=== PATIENT | male | born 1945 | race Caucasian/White ===

== ENCOUNTER 2019-05-27 16:22 | Inpatient (IN) | payer OTHER ==
[~2019-05-27] VITALS: Ht 162.6 cm; Wt 60.1 kg
[2019-05-27] MEDS ORDERED: LIPITOR80 MG PO (20:04)
[2019-05-27] MEDS ORDERED: CARVEDILOL12.5 MG PO (20:16)
[2019-05-27] MEDS ORDERED: DOCUSATE SODIU100 MG PO (20:18)
[2019-05-27] MEDS ORDERED: FLONASE 0.05%50 MCG (20:19)
[2019-05-27] MEDS ORDERED: HALDOL 0.5 MG0.5 MG PO (20:21)
[2019-05-27] MEDS ORDERED: VIMPAT200 MG PO (20:27)
[2019-05-27] MEDS ORDERED: LEVOTHYROXINE75 MCG PO (20:30)
[2019-05-27] MEDS ORDERED: LORAZEPAM 1 MG T1 MG PO (20:32)
[2019-05-27] MEDS ORDERED: MELATIN3 MG PO (20:33)
[2019-05-27] MEDS ORDERED: OLANZAPINE10 M1 PO (20:35)
[2019-05-27] MEDS ORDERED: OLANZAPINE5 M1 PO ×2 (20:38→20:39)
[2019-05-27] MEDS ORDERED: ZANTAC 150MG T150 M1 (20:41)
[2019-05-27] MEDS ORDERED: MIRALAX17 GM (20:41)
[2019-05-27] MEDS ORDERED: FLOMAX0.4 MG PO (20:43)
[2019-05-27] MEDS ORDERED: SUPER THERAVIT1 EACH PO (20:43)
[2019-05-27] MEDS ORDERED: ACETAMINOPHEN325 M1 (20:45)
[2019-05-27] MEDS ORDERED: VITAMIN E1000 UNIT PO (20:46)
[2019-05-27] MEDS ORDERED: ZONEGRAN100 MG PO (20:48)
[2019-05-27 21:05] VITALS: BP 145/59
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
[2019-05-28 05:42] LABS: ABSOLUTE NEUTROPHILS 4.2 thou/uL (1.4-8.2); BASOPHILS 0.4 % (0.0-2.0); HEMATOCRIT 35.7 % (42.0-52.0); HEMOGLOBIN 11.8 gm/dL (14.0-18.0); LYMPHOCYTES 31.9 % (24.0-44.0); MCH 29.1 pg (26.0-34.0); MCHC 33.2 g/dL (28.0-37.0); MCV 87.7 fL (80.0-100.0); MONOCYTES 8.4 % (1.0-8.0); PLATELET COUNT 243 thou/uL (150-400); POLYS 57.3 % (36.0-66.0); RBC 4.07 mil/uL (4.50-6.00); RDW 15.2 % (10.5-14.5); WBC 7.3 thou/uL (4.0-11.0)
[2019-05-28 06:05] LABS: CALCIUM 8.8 mg/dL (8.5-10.1); CREATININE 0.9 mg/dL (0.7-1.3); POTASSIUM 3.6 mmol/L (3.5-5.1); TOTAL BILIRUBIN 0.3 mg/dL (<0.1-1.0); TOTAL PROTEIN 6.9 g/dL (6.4-8.2)
[2019-05-28] MEDS ORDERED: PROSCAR 5MG TABL5 M1 PO (06:48)
[2019-05-28] MEDS ORDERED: HALDOL 0.5 MG0.5 MG PO (06:51)
[2019-05-28] MEDS ORDERED: DELTA D3400 UNIT PO (06:55)
[2019-05-28 07:52] LABS: URINE BILIRUBIN NEGATIVE (Negative); URINE BLOOD NEGATIVE (Negative); URINE CLARITY CLEAR; URINE COLOR YELLOW; URINE GLUCOSE-RANDOM* NEGATIVE (Negative); URINE KETONES NEGATIVE (Negative); URINE LEUKOCYTES NEGATIVE (Negative); URINE NITRITE NEGATIVE (Negative); URINE PROTEIN (DIPSTICK) NEGATIVE (Negative); URINE SPECIFIC GRAVITY <= 1.005 (1.005-1.035); URINE UROBILINOGEN 0.2 E.U./dl (0.2-1.0)
--- NOTE | 2019-05-28 08:00 | NUR ---
ASSUMED CARE OF PATIENT FROM VOLTAGE INSPECTOR. PATIENT IN HALLWAY AMBULATING WITH WALKER. BREATH SOUNDS CLEAR, HYPO BOWEL SOUNDS, HEART TONES S1 S2 CLEAR. PATIENT WAS HESITANT TO TAKE MORNING MEDICATIONS. PATIENT TAKES MEDICATIONS WHOLE. PATIENT CALM, PLEASANT, AND CONFUSED IN SPEECH. DIFFICULT TO REDIRECT PATIENT.
[2019-05-28 09:30] VITALS: BP 145/59
--- NOTE | 2019-05-28 16:06 | NUR ---
SW called and spoke with pt's dght to complete the intake assessment and TX plan. Set up a family meeting for Friday 06/01 at 11am.
[2019-05-28 23:50] VITALS: BP 145/59
--- NOTE | 2019-05-29 03:47 | NUR ---
PT RESTLESS AND CONFUSED EARLY IN SHIFT. WANDERING INTO OTHER PTS ROOMS. SOME RESISTANCE TO REDIRECTION. TOOK HS MEDS AFTER SNACKS W/O PROBLEM. CONTINUED TO BE RESTLESS, AND FINALLY UP IN CHAIR IN DAYROOM WHERE HE DOZED OFF AND ON THE REMAINDER OF THE NIGHT.
[2019-05-29 07:45] VITALS: BP 122/63
[2019-05-29 16:52] VITALS: BP 131/60
--- NOTE | 2019-05-29 18:30 | NUR ---
PATIENT ALERT AND COOPERATIVE WITH POC. PATIENT VENEZUELAN PRIMARY LANGUAGE WITH VERY LITTLE UNDERSTANDING OF KINYARWANDA. FAMILY TO VISIT THIS AFTERNOON. PATIENT ABLE TO WALK WITH WALKER.
[2019-05-29 19:57] VITALS: BP 127/66
--- NOTE | 2019-05-30 01:39 | NUR ---
1909-Report received from day shift nurse and care assumed. Koko was pacing and also sat in the day area for HS snack. He was anxious then also finding kleenex and wiping the table top which as clean already. He had no c.o. pain, given his HS meds. which he took whole with water at HS med. time. He was given Melotonin 6 mg. po for insomnia, and went to his bed. He tossed and turned talking to unseen others with his eyes closed, very restless with his eyes closed and tried getting out of bed with eyes closed a few times noted. Melatonin was not effective for a sleep aid. The Dr. was called and the pt. was given Ativan 1 mg. po at [address] said to call him back with the result in one hour. He was tossing and turning with eyes closed mumbling to him self and placed legs to the side over the rail a few times with eyes closed with mumbling. The DrMelquiades called and at 0030 he was given Geodon 10 mg. IM x 1 now. It was effective as the pt. was not restless and snoring with sleep at 0145.
[2019-05-30 07:51] VITALS: BP 120/78
--- NOTE | 2019-05-30 11:36 | NUR ---
Has been up walkeing with walker, noted a limp where he is favoring the right leg, upon exam found tight and discolored calf with some pitting noted, he stated it was painful, he does not present other symptoms of discomfort, agitation or AVH. Dr. Weston is aware and is to order an ultrasound of his LE's. Continue to monitor for behaviors and safety issues.
[2019-05-30 19:52] VITALS: BP 172/92
--- NOTE | 2019-05-31 01:33 | NUR ---
PATIENT ASSESSED AND IS CONFUSED, AND ALERT X 1. SITTING IN W/C ROLLING HIMSELF IN HALLWAY. GETS UP OUT OF CHAIR OFTEN, HAS CHAIR ALARM ON. REDIRECTED TO SIT DOWN. REMAINS VERY IMPULSIVE AT TIMES. MEDS GIVEN WITHOUT PROBLEMS.NO SEIZURES NOTED THIS SHIFT. NO S/S OF AH/VH OBSERVED. TAKES MED WELL AND EATING WELL TODAY. PLKACED TO BED AND JHAS BEEN SLEEPING EVER SINCE. INCONT OF BOWEL AND BLADDER THIS SHIFT. HR IRREGULAR. EDEMA NOTED TO LEFT LEG ABOUT 1+ AND RIGHT LEG 2+. DOES UNDERSTAND SOME CHILEAN. CONT PLAN OF CARE. BED ALARM ON ALSO. IS STUBBORN AT TIMES .
[2019-05-31 09:28] VITALS: BP 143/77
[2019-05-31 13:08] VITALS: BP 143/77
[2019-05-31 19:15] VITALS: BP 123/56
--- NOTE | 2019-05-31 19:52 | NUR ---
ASSUMED CARE @ 19:15 ON 05/31/19, IN W/C IN DAY ROOM AND [address]. PROPELLS SELF IN W/C AND STANDS IMPULSIVELY. CHAIR ALARM SET. WHEN ATTEMPTING TO AUSCULTATE LUNG SOUNDS, PATIENT MOVED MY STETHASCOPE TO HIS LEFT CHEST, AND MADE BOXING FIST MOVEMENTS TO MY FACE, WITHOUT CONTACT.
--- NOTE | 2019-05-31 22:40 | NUR ---
ACCEPTED MEDICATION CRUSHED IN APPLESAUCE. AMBULATED WITH WALKER AND WAS WALKED TO BED X 1 ASSIST @ 10:30. WILL CONTINUE TO MONITOR Q 12 MINUTES FOR PATIENT SAFETY.
[2019-05-31 23:30] VITALS: BP 123/56
[2019-06-01 09:01] VITALS: BP 130/78; BP 136/78
[2019-06-01 10:47] VITALS: BP 117/71
--- NOTE | 2019-06-01 12:43 | NUR ---
PATIENT WAS IN BED WHEN CARE ASSUMED THIS MORNING. PATIENT ASSISTED UP FROM BED BY STAFF, HE AMBULATES WITH ASSIST OF ROLLER WALKER, GAIT SLIGHTLY UNSTEADY. PATIENT TOOK ALL HIS MEDICATION WHOLE WITHOUT DIFICULTY. PATIENT CONSUMED ABOUT 75-100% BREAKFAST, HE REFUSED TO EAT LUNCH. PATIENT C/O RIGHT KNEE PAIN, WHICH HE RATED 10/10 SPEAKING THROUGH HIS DAUGHTER. PATIENT UNDERSTANDS MALAY, AND SPEAKS A LITTLE. DR. SANCHEZ NOTIFIED OF C/O PAIN TO RIGHT KNEE, HE ORDERED TYLENOL. TYLENOL 650MG GIVEN, WILL MONITOR EFFECTIVENESS. PATIENT CURRENTLY SITTING IN LISA ROOM TAKING INTERMITTENT NAP. NO AGGRESSION OR AGITATION NOTED AT THIS TIME. PATIENT DENIES SUICIDAL/HOMICIDAL IDEATION. NO SIGN OF ACUTE DISTRESS NOTED AT THIS TIME, WILL MONITOR FOR AFETY.
--- NOTE | 2019-06-01 17:47 | NUR ---
BRENDEN and Dr Ceja met with pt's fmaily today to discuss treatment and d/c planning. They would like to see how he responds to treatment but is willing for the referrals to be sent to [facility] and [facility] later this week.
[2019-06-01 21:22] VITALS: BP 158/91
--- NOTE | 2019-06-01 22:54 | NUR ---
PATIENT WAS EATING HIS SUPPER AT 1900 WHEN I CAME ON SHIFT. HE HAD NOT LIKED WHAT HE HAD GOTTEN SO ANOTHER DINNER CHOICE WAS BROUGHT TO HIM. HE DENIES PAIN. HE HAS 1+ EDEMA IN HIS RIGHT FOOT. HE HAS BEEN UP AMBULATING WITH HIS WALKER. HE DID TAKE HIMSELF TO THE BATHROOM AND HE WAS INCONINENT SO HE DID ASK FOR A BRIEF AND I ASSISTED HIM WITH CHANGING IT. HE HAS BEEN PLEASANT WITHOUT NEGATIVE BEHAVIORS. HE TOOK HIS MEDS WITHOUT QUESTION AND WENT TO BED. BED IN LOW POSITION AND BED ALARM ON.
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
--- NOTE | 2019-06-02 00:40 | NUR ---
PATIENT WALKED OUT TO NURSE'S STATION STATES THAT HIS PAIN IS STILL A 10 AFTER TAKING THE TYLENOL 650MG. CALLED HOSPITALIST RICHARD CRISTOBAL, RN ON SITE AND ORDERS RECEIVED. PATIENT IS SITTING OUT IN DINING ROOM AT THIS TIME. AWAITING ORDERS TO BE PUT IN BY RN ON SITE AND WILL CARRY OUT PHARM ORDERS. CXR CAN WAIT TILL MORNING PER RN ON SITE.
--- NOTE | 2019-06-02 01:33 | NUR ---
PATIENT UP IN BATHROOM STANDING AT SINK. HE NOW IS TAKING THE WASHCLOTH AND RUBBING IT THRU HIS HAIR LIKE HE IS CLEANING HIMSELF UP. HE REMOVED HIS LIDOCAINE PATCH AND SOAKED IT IN WATER AND WRAPPED IN IN A PAPER TOWEL. I THREW IT AWAY. I TRIED TO ENCOURAGE PATIENT BACK TO BED BUT HE HAD ENOUGH OF ME TRYING AND SAID, "STOP, I KNOW. I AM FINE." HE WILL NOT ANSWER ME ABOUT HIS PAIN. HE JUST KEEPS DOING HIS REPETITIVE TASKS. WILL CONTINUE TO MONITOR.
[2019-06-02 05:46] LABS: CALCIUM 8.5 mg/dL (8.5-10.1); CREATININE 0.6 mg/dL (0.7-1.3); POTASSIUM 4.3 mmol/L (3.5-5.1)
--- NOTE | 2019-06-02 06:48 | NUR ---
PATIENT REFUSED TO TAKE HIS THYROID AND FAMOTIDINE THIS MORNING. HE BECAME AGITATED AND ADAMANT THAT HE WOULD NOT TAKE MEDS.
[2019-06-02 08:00] VITALS: BP 147/73
--- NOTE | 2019-06-02 08:00 | NUR ---
Assumed care of patient from solution maker. Patient calm, content and pleasant. Patient has a blunted affect. Patient breath sounds clear bilaterally, bowel sounds present. Patient confused, thinking someone is after him. Patient took medications whole but likes to count them first. Pain patch put on right ribs. Patient stated that he was not in pain.
[2019-06-02 08:55] VITALS: BP 147/73
[2019-06-02 20:29] VITALS: BP 127/60
[2019-06-02 20:30] VITALS: BP 129/49
--- NOTE | 2019-06-03 05:54 | NUR ---
The pt. in the evening was noted with bilateral lower legs stiff so a wheelchair was used for him to go to the day room. He was med. compliant and then he wheeled to the conference room and shouted towards the locked door. He shouted for his daughter who he thought was in there. He was redirected though and explained the time of day and that she was home. He was given Melatonin 6 mg. po prn for insomnia later, and it was effective. He snored mostly this nite resting well, and was up this morning incontinent/continent of bladder, using the wheelchair again this morning. He has a bright friendly affect and manner this morning.
[2019-06-03 07:53] VITALS: BP 100/61
--- NOTE | 2019-06-03 08:09 | NUR ---
PT IN DINNING ROOM. PT SPEAKING UZBEK, PT EATING BREAKFAST. PT TOOK AM MEDS WHOLE WITH ENCORAGEMENT. VERY CAUTIOUS WITH MOVING FROM CHAIR TO WALKER.
[2019-06-03 08:10] VITALS: BP 100/61
--- NOTE | 2019-06-03 08:26 | NUR ---
SW sent referral per family request to: [facility] [phone] (f) [phone]. [facility] [phone] (f) [phone] [facility] [phone] (f) [phone].
[2019-06-03 17:30] VITALS: BP 156/95
[2019-06-03 20:00] VITALS: BP 124/61
--- NOTE | 2019-06-04 00:56 | NUR ---
ASSUMED CARE @ 19:15 ON 06/03/19. IN W/C PROPELLING SELF IN ROOM AND HALLWAY. COOPERATED WITH ASSESSMENT, TOOK HS MEDS CRUSHED IN APPLESAUCE ATER THE 2ND ATTEMPT. DRINKS HONEY THICK LIQUIDS. IN BED AT THIS TIME, EYES CLOSED, RESPIRATIONS EVEN AND UNLABORED. BED IN LOW POSITION, WITH BED ALARM SET. WILL CONTINUE TO MONITOR Q 12 MINUTES FOR PATIENT SAFETY.
[2019-06-04 04:07] VITALS: BP 124/61
[2019-06-04 05:07] LABS: CALCIUM 8.6 mg/dL (8.5-10.1); CREATININE 0.6 mg/dL (0.7-1.3); POTASSIUM 3.5 mmol/L (3.5-5.1)
--- NOTE | 2019-06-04 06:18 | NUR ---
SLEPT 7 HOURS OVERNIGHT
[2019-06-04 07:45] VITALS: BP 141/57
--- NOTE | 2019-06-04 08:10 | NUR ---
PT SITTING AT TABLE FOR BREAKFAST. PT SEEMS TIRED. PT DID AWAKE WITH VERBAL STIMULI. PT COUNTING MEDICATION IN CUP PT STATED ONE MOMENTO. PT DID TAKE PO MEDS WHOLE. PT LUNGS CLEAR. PT STIFF TO LE WITH TRANSFERS. PT IN W/C.
[2019-06-04 08:30] VITALS: BP 141/57
--- NOTE | 2019-06-04 08:41 | NUR ---
Date of Admission: 05/27/19 Date of Activity Therapy Assessment: 05/30/19 Activity Goal: Support reality orientation Initial Goal: 1 Group activity/day Weekly progress towards goal: On track Group participation level: Varies Behaviors observed: Patient's participation varies based on energy level as well as language barrier which affects his ability to socialize within the milieu. When present in groups, patient attempts socializing with peers and is seen with bright affect. Patient has particularly enjoyed ball exercise and painting this week. Plan: No change towards goal
--- NOTE | 2019-06-04 14:30 | NUR ---
ASSISTED PT TO BATHROOM. PT ABLE TO TRANSFER WITH X1 ASSIST. PT CLEANED UP SELF WITH WASHRAG AND WASHED HAIR. PT ABLE TO ASSIST WITH PULLING PANTS UP.
[2019-06-04 16:50] VITALS: BP 130/66
--- NOTE | 2019-06-04 16:59 | NUR ---
ADM TYLENOL 325MG 2 TABS PO FOR PAIN TO LEGS AND ALSO PT FEELS WARM TO TOUCH, 99.9 TEMP. PT FAMILY HERE FOR VISITING HOURS AND WAS CONCERNED ABOUT HIS SLEEPYNESS. WENT OVER MEDS AND PT WAS NOT SUPPOSED TO BE ON DEPAKOTE. CALLED [facility] CONSULTANT FOR ORDERS TO D/C, ADJUSTED ZYPREXIA TIME ALSO.
[2019-06-04 22:59] VITALS: BP 126/59
[2019-06-04 23:15] VITALS: BP 157/68
--- NOTE | 2019-06-05 02:12 | NUR ---
ASSUMED CARE FROM DAY SHIFT PT UP IN WHEELCHAIR CALM COOPERATIVE , ABLE TO TAKE MEDICATION WITH ISSUES. PT THEN WENT TO SLEEP AND AFTER 2 HOUR PT AWAKEN C/O CHEST PAIN VSS PARTS COUNTER CLERK HERE PAIIN MEDIATION GIVEN AND TUMS ORDERED AND GIVEN. PT SOON RELAXED AND SLEEPING QUIETLY , FREQ ROUNDING FOR SAFETY BED ALARM. WILL CONITINUE PLAN OF CARE AND REPORT CHANGES OR ABNORMAL FINDINGS.
--- NOTE | 2019-06-05 07:30 | NUR ---
Assumed care of patient from master hearth technician. Patient calm, content, and pleasant. Patient neat and clean. Patient breath sounds clear, bowel sounds present, s1 s2 present. Patient took medications without any difficulty this am. Patient takes pills whole. Patient likes to count medications. Patient in wheel chair this am and ambulates with some assisstance. No complaints or questions.
[2019-06-05 08:00] VITALS: BP 110/49
[2019-06-05 09:12] VITALS: BP 110/49; BP 110/89
--- NOTE | 2019-06-05 10:26 | NUR ---
WOODY spoke with pts [facility] Lizz and she had concerns that the Zyprexa was not ordered for 25mg , and that he was getting Oxycodone and had a Lidocaine patch which are new and she was concerned about this. Woody called and reported this to Ck cobos . Woody also reported that the 3 referrals had been sent. Will follow up friday with these placement options.
[2019-06-05 23:13] VITALS: BP 143/66
--- NOTE | 2019-06-06 01:52 | NUR ---
ASSUMED CARE @ 19:15 ON 06/05/19. PATIENT WAS HAVING HIS VITAL SIGNS TAKEN, AND WAS HOLDING THE SPO2 METER TIGHTLY IN HIS HAND AND NOT RELEASING THE EQUIPMENT. HS MEDS PROVIDED WELL OXY 5 MG PRN FOR PAIN AND MELATONIN 6 MG @ 2100. MEDS PROVIDED CRUSHED IN APPLESAUCE. PATIENT CALMED DOWN SLIGHTLY. WHEN TRANSFERRING TO BED, HAD A LARGE LOOSE YELLOW-BROWN COLORED BM. PATIENT RESISTED STAFF EFFORTS TO PROVIDE INCONTINENT CARE. X3 ASSIST TO HANDLE COMBATITIVE AND RESISTIVE PATIENT. BED IN LOW POSITION, BED ALARM SET AND Q 12 MINUTE CHECKS.
[2019-06-06 05:52] VITALS: BP 143/66
--- NOTE | 2019-06-06 05:59 | NUR ---
slept 6.8 hours overnight
[2019-06-06 09:33] VITALS: BP 143/66
--- NOTE | 2019-06-06 09:39 | NUR ---
ASSUMED CARE AT 0700 THIS MORNING. PT. UP IN W/C SITTING AT THE TABLE IN THE DINING ROOM. PT. TOOK MEDICATIONS WITHOUT DIFFICULTY AFTER HE ATE BREAKFAST. WHILE ATTEMPTING TO ASSESS HIS HEART AND LUNGS, HE HUMMED THROUGHOUT THE PROCESS UNABLE OR UNWILLING TO COOPERATE. HE ATE WELL FOR BREAKFAST. WAS ON THE UNIT FOR MEETINGS BUT UNABLE TO PARTICIPATE DUE TO LANGUAGE DIFFERANCE. HE CONTINUES TO REQUIRE ATTENTION OF STAFF TO MAINTAIN HIS BEHAVIORS.
[2019-06-06 12:50] VITALS: BP 132/53
[2019-06-06 20:35] VITALS: BP 129/57
--- NOTE | 2019-06-07 01:31 | NUR ---
Care assumed of patient at 1915: Patient seated in his w/c in the day room and hallway. Patient propelling w/c about the halls, trying to open doors that are locked. Patient assisted to the day room for HS snack. Patient ate 100%. Patient took HS medication whole without difficulty. Patient compliant with nursing assessment. 1+ edema to bilateral lower extremities noted. Patient encouraged to elevate lower extremities by sitting in recliner. Patient declined by stating "no, no, no". Patient incontinent of bladder. Amaris care completed and linens changed. Patient assisted to bed and was able to sleep for approximately 1.5 hours. Patient then up and about, removing clothing, dressing himself again, walking around his room, organizing and pilfering through personal belongings. Nurse administered Melatonin per MD order. Patient reported pain 8/10 to bilateral lower extremities. Nurse attempted to provide PRN Oxycodone which patient then refused. Patient daughter called and reported that patient's was worried about edema to bilateral lower extremities. Will pass on for Dr. Weston to alisia in the AM. Daughter satisfied with this response. Patient was able to lay back down and has been resting quietly for approximately the last hour. No aggression observed. Patient remains impulsive with occasional agitation. Denies SI/HI/AH/VH. No s/s of delusional or paranoia behaviors observed. Patient is laying in bed with legs elevated at this time.
--- NOTE | 2019-06-07 07:30 | NUR ---
Assumed care of patient this am. Patient alert and awake sitting in wheel chair at table in the mileu. Patient breath sounds clear, vital signs stable, bowel sounds present. 2+ edema in right foot. Patients affect appears to be slightly tense. Patient refused morning medications.
[2019-06-07 08:00] VITALS: BP 153/76
[2019-06-07 10:01] VITALS: BP 153/76
--- NOTE | 2019-06-07 13:05 | NUR ---
Assess due to length of stay. Admit to H unit for dementia with aggressive behavior. Eating fairly well, usually up to 100% of 2 meals per day, plus access to snacks. No new wt to assess. Low nutrition risk
[2019-06-07 16:22] LABS: HEMATOCRIT 40.6 % (42.0-52.0); HEMOGLOBIN 13.1 gm/dL (14.0-18.0); MCH 28.2 pg (26.0-34.0); MCHC 32.2 g/dL (28.0-37.0); MCV 87.7 fL (80.0-100.0); RBC 4.63 mil/uL (4.50-6.00); RDW 14.9 % (10.5-14.5); WBC 6.6 thou/uL (4.0-11.0)
[2019-06-07 16:32] LABS: CALCIUM 9.2 mg/dL (8.5-10.1); CREATININE 0.6 mg/dL (0.7-1.3); POTASSIUM 3.8 mmol/L (3.5-5.1)
[2019-06-07 20:26] VITALS: BP 123/65
--- NOTE | 2019-06-07 22:58 | NUR ---
Care assumed of patient at 1915: Patient ambulating about the day room, restless. Patient using walker at times, then w/c at times. Patient visualized folding up walker and sitting in up against the wall. Required frequent re-directions for safety reminders. Patient irritable during assessment. Ate 100% HS snack. Took HS medication, some crushed, some whole, without difficulty. Patient incontinent of bladder. Assisted to the bathroom. Compulsive behaviors observed. Patient prefers to have a wash cloth and comb in his pocket at all times. Patient takes several minutes to adjust clothing and brief to his liking. Nurse stayed with patient while in the bathroom for safety due to fall risk. Patient was provided Melatonin PRN due to restlessness and difficulty settling down to go to bed. Patient was able to lay down at a reasonable hour and has been resting quietly. No verbal or physical aggression observed. Denies SI/HI. No s/s of delusional or paranoia behaviors observed.
[2019-06-08 05:39] LABS: HEMATOCRIT 39.9 % (42.0-52.0); HEMOGLOBIN 13.1 gm/dL (14.0-18.0); MCH 28.7 pg (26.0-34.0); MCHC 32.8 g/dL (28.0-37.0); MCV 87.5 fL (80.0-100.0); RBC 4.56 mil/uL (4.50-6.00); WBC 10.4 thou/uL (4.0-11.0)
[2019-06-08 06:00] LABS: CALCIUM 8.9 mg/dL (8.5-10.1); CREATININE 0.6 mg/dL (0.7-1.3); MAGNESIUM 1.8 mg/dL (1.8-2.4); POTASSIUM 3.4 mmol/L (3.5-5.1)
[2019-06-08 09:08] VITALS: BP 142/74
--- NOTE | 2019-06-08 09:43 | NUR ---
0700: Report rec from jayy jo, care assumed. [id number]: Self propels in w/c to DR, alert, speaks Urdu for needs, answers oriented answers to name, feeds self with set up assist PRN and supervision, takes meds whole/crushed in pudding w/o difficulty. Denies pain, Lidacaine patch applied to lower rt medial back. Attends 0900 therapy group, observed sleeping during group.
--- NOTE | 2019-06-08 11:55 | NUR ---
BRENDEN met with family and Dr Ceja to discuss meds and d/c plans. Pt was declined from [facility] and [facility]. BRENDEN recomended more placements. [phone], [facility] [phone], [facility] [phone], [facility] [phone], [place] [facility] [phone]. And provided family with [employer] # to follow up with supportive documentation for his Medicaid application
[2019-06-08 20:00] VITALS: BP 89/52
--- NOTE | 2019-06-09 00:01 | NUR ---
Pt ambulating in [place] with walker, checking doors, folding papers in day room. Pt needing to be reminded to use walker. Pt falling asleep standing in day room, leaning over sink, sitting in chair. Pt compliant with medications and hs snack.
--- NOTE | 2019-06-09 07:30 | NUR ---
Assumed care of patient this am. Patient in wheel chair sitting at table. Patient resting, calm, and pleasant. Patients affect relaxed. Assessment completed, vital signs stable, breath sounds clear, bowel sounds present. Patient takes meds crushed in pudding or whole. Patient was adherent with medications this morning. Patient counted medications prior to taking them.
[2019-06-09 08:00] VITALS: BP 147/64
[2019-06-09 09:10] LABS: CREATININE 0.7 mg/dL (0.7-1.3); POTASSIUM 3.4 mmol/L (3.5-5.1)
[2019-06-09 11:17] VITALS: BP 147/64
[2019-06-09 20:07] VITALS: BP 136/62
--- NOTE | 2019-06-10 00:15 | NUR ---
Care of patient assumed at 1915: Patient alert and oriented to person. Confusion and forgetfulness observed. Patient cooperative with assessment. Denies pain or discomfort. Patient restless. Observed pushing w/c down hallway and in dayroom. Patient seated in w/c at times. W/C placed in storage to encourage patient to walk. Gait is slow but steady. Walker is beside bed within reach. Patient compulsive about clothing, having a washcloth and his comb with him at all times. Patient becomes anxious when he is not able to find these items. Patient did curse at a nurse this evening who was trying to assist him to bed. Patient ate 100% snack. Took HS medication whole without difficulty. Patient has not shown any physical aggression this evening. Denies SI/HI/AH/VH. No s/s of delusional or paranoia behaviors. Patient is still awake at this time. Patient is having difficulty falling asleep. Melatonin PRN will be administered.
[2019-06-10 09:09] VITALS: BP 142/55
--- NOTE | 2019-06-10 10:27 | NUR ---
ASSUMED CARE AT 0700 THIS MARI. PT. STABLE. HE ATE BREAKFAST ON THE UNIT AND TOOK ALL HIS MEDICATIONS WITHOUT DIFFICULTIES. HE WAS ON THE UNIT FOR MORNING MEETING BUT DID NOT DO MUCH PARTICIPATING. UNABLE TO SEE S/S SI/HI FOR AVH. HE WAS COOPERATIVE WITH THIS RN WHEN I ASSESSED HIM. AFTER GROUP, HE RETURNED TO HIS ROOM.
[2019-06-10 10:39] VITALS: BP 142/55
--- NOTE | 2019-06-10 15:06 | NUR ---
SW spoke with [facility] and reported that the [facility] had declined this pt, but that [facility] was considering the referral. Sw followed up with [facility] and [facility].
[2019-06-10 19:51] VITALS: BP 117/63
--- NOTE | 2019-06-10 23:37 | NUR ---
Care assumed of patient at 1915: Patient alert and oriented to person. Patient confused and forgetful. Patient resistive to assist during cares at times. Patient compliant with nursing assessment. Denies pain or discomfort. Denies SI/HI/AH/VH. No s/s of delusional or paranoia behaviors. Patient ate 100% HS snack. Took HS medication whole without difficulty. Nurse administered PRN Melatonin per MD order for insomnia. Patient is compulsive with the way his clothing is positioned. His brief, pants and shirts have to be a certain way. Patient has a routine after he uses the bathroom with washing his hands, brushing his teeth, wiping his hands. Patient likes to have a comb and wash cloth with him at all times. Patient has been using a walker for ambulation this shift. Patient has not been able to go to bed yet and has been awake and seated in the day room. Patient incontinent of bladder. Nurse attempted to assist patient change brief and linens. Patient declined assistance and became angry/agitated with nurse. Patient continues to pilfer around his room at this time.
--- NOTE | 2019-06-11 07:30 | NUR ---
Assumed care of patient this am. Patient sitting up in mileu in chair. Patient ambulates using walker. Patient denies pain. Patient assessment--breath sounds clear bilaterally, bowel sounds present, heart tones s1 and s2. Patient feeds self and can take pills whole or crushed in food. Patient has a family visit set up for this morning in the conference room.
[2019-06-11 08:00] VITALS: BP 136/73
[2019-06-11 08:28] VITALS: BP 136/73
--- NOTE | 2019-06-11 14:23 | NUR ---
Date of Admission: 05/27/19 Date of Activity Therapy Assessment: 05/30/19 Activity Goal: Reality orientation Initial Goal: 1 Group activity/day Weekly progress towards goal: Did not achieve goals Group participation level: None Behaviors observed: Patient is not actively participating in groups at this time. He identifies a personal task and is unable to be refocused from whatever goal he is trying to accomplish. He often wanders unit, but interacts appropriately. Plan: No change towards goal
[2019-06-11 20:43] VITALS: BP 133/60
--- NOTE | 2019-06-12 04:00 | NUR ---
ASSESSMENT: PT REMAIN ALERT AND ORIENT TIMES TWO, FORGETFUL. UP WITH WALKER. DID NOT WANT TO GET IN BED BUT DOZED DURING THE NIGHT IN THE RECLINER IN THE DAY ROOM. VSS, AFEBRILE. TOLEARATING PO INTAKE. TOOK PILLS CRUSHED IN ICECREAM WELL. POSSIBLE DC FRIDAY TO . NO COMBATIVE BEHAVIOR THIS SHIFT. PLEASANT AND COOPERATIVE. SLOW PROGRESS, WILL CONTINUE TO MONITOR.
--- NOTE | 2019-06-12 08:56 | NUR ---
0710: Report rec from noc shift, care assumed.
--- NOTE | 2019-06-12 11:03 | EKG ---
[address] [address] ELECTROCARDIOGRAM REPORT Name: JEREMIAH JYA Room #: 526A-A ADM IN M.R.#: [id number] Admission: 05/27/19 Attend Phys: Aguilar Ceja DO Discharge: Date of : 45 Report #: [id number] THIS REPORT FOR: //name// [facility] Test Date: 2019-06-11 Test Time: 14:22:00 Pat Name: JEREMIAH JAY Department: Room: 52 A Gender: M [employer]: QUINTEN : 1945 Requested By: Aguilar Ceja Order Number: [id number] MD: Aubrey Castro Measurements Intervals [place] Rate: 70 P: NE: QRS: 88 QRSD: 160 T: -9 QT: 417 QTc: 450 Interpretive Statements Atrial fibrillation Right bundle branch block No previous ECG available for comparison Electronically Signed On 06-12-2019 11:03:39 CDT by Aubrey Castro [email or web address] <ELECTRONICALLY SIGNED> By: Aubrey Castro MD, [facility] 06/12/19 1103 1422 1422 Aubrey Castro MD, FACC /EPI
[2019-06-12 20:00] VITALS: BP 103/50
--- NOTE | 2019-06-12 23:32 | NUR ---
PT AMBULATING IN DAY ROOM WITH WALKER, PT WALKS HALLS, CLEANS SINK. PT FALLS ASLEEP IN CHAIR INTERMITTENTLY IN DAY ROOM. PT UP AND DOWN FROM BED X 3 THIS NIGHT. PT COMPLIANT WITH SNACK AND MEDICATION. SLOUCHED STANCE, STEADY GAIT, POOR EYE CONTACT, MUMBLED SPEECH. PT PEED UNDER BED X 1.
--- NOTE | 2019-06-13 06:41 | NUR ---
PT AWAKE AND RESTLESS MOST OF THE NIGHT, WANDERING IN ROOM REARRANGING SHEETS, CLOTHES. PT INCONTINENT ON FLOOR X 2.
[2019-06-13 09:03] VITALS: BP 136/52
--- NOTE | 2019-06-13 13:18 | NUR ---
HAS BEEN VISIBLE IN DAYROOM SITTING QUIETLY WITH PEER GROUP-NO AGITATION OR RESTLESSNESS OBSERVED OR REPORTED. USING ROLLER WALKER FOR AMBULATION AND GAIT IS STEADY WITH ASSISTIVE DEVICE. DENIES C/O PAIN/DISCOMFORT. DENIES SI/SH/HI-MINIMAL INTERACTION WITH PEERS/STAFF D/T LANGUAGE BARRIER BUT IS ABLE TO COMMUNICATE NEEDS/REQUESTS. COMPLIENT WITH AM MEDICATIONS.
[2019-06-13 19:31] VITALS: BP 129/68
--- NOTE | 2019-06-13 23:14 | NUR ---
Care assumed of patient at 1915: Patient seated in day room at start of shift. Patient calm, pleasant and cooperative. Took HS medication whole without difficulty. Ate 100% HS snack. Patient incontinent of bladder and was assisted to the bathroom. Cooperative with senthil care and linen change. Patient then stated he was ready to go to bed. Patient was assisted to bed without difficulty. Patient polite and respectful. Patient has compulsive tendencies in the bathroom and has a routine that he prefers to stick to with clothing adjustments, oral hygiene, hair comb, towel placement. Patient was able to fall asleep rather quickly this evening. Patient did wake up later due to having another incontinent episode of bladder. Patient cooperative again with senthil care and linen change. Patient was able to lay back down and fall back to sleep without difficulty. No aggression, agitation, wandering or restlessness observed this evening. No s/s of AH, VH, delusional or paranoia behaviors observed. Denies pain or discomfort. Ambulates with FWW about unit.
[2019-06-14 08:09] VITALS: BP 143/47
--- NOTE | 2019-06-14 13:15 | NUR ---
Followup: Pt with advanced dementia. Wts show 130 lb (05/28), 139 lb (05/29) and 125 lb (06/13) so possible wt loss 5-9 lb. Intake records reviewed and eating 75-100% of meals. When observed at lunch, was enjoying hamburger and feeding self. No height recorded, but pt small stature and appears well nourished. Low nutrition risk, continue to follow trends.
--- NOTE | 2019-06-14 16:23 | NUR ---
SW sent referrals to [facility] and is pending [facility]. Spoke with [facility] regaridng her concerns.Still helping with d/c georgiana. Pt's ht also spoke with Dr dodd.
--- NOTE | 2019-06-14 17:50 | NUR ---
0710: Report rec from [facility] shift, care assumed. [id number]: Ambulatory with walker, leaves walker stranded at times, gait unsteady w/o walker. Re-directs easily, speaks and understands common Moldovan words. Feeds self with minimal set-up assist, appetite good, takes meds whole w/o difficulty. Attends 0900 therapy group, no participation noted. Mood is cheerful, cooperative with staff
--- NOTE | 2019-06-14 23:20 | NUR ---
PT AMBULATING IN ROOM WITH WALKER. PT TOOK SHOWER WITH CLOTHES ON, WATER ALL OVER FLOOR AND PT FOUND SITTING ON TOILET WITH WET CLOTHES ON. PT COMPLIANT WITH MEDS, SNACK AND ADL CARES. PT HAS STEADY GAIT, GOOD EYE CONTACT BUT SLOUCHED POSTURE.
--- NOTE | 2019-06-15 05:16 | NUR ---
Pt awakened twice in the night to use restroom. Gait unsteady with shuffling, not able to independently ambulate wtih walker, w/c for self propel.
--- NOTE | 2019-06-15 08:35 | NUR ---
Woody [facility] with [place] and [facility]. [facility] denied this admssion
[2019-06-15 09:04] VITALS: BP 141/82
--- NOTE | 2019-06-15 14:53 | NUR ---
PATIENT WAS UP AND OUT IN DAY ROOM WHEN CARE ASSUMED. PATIENT AMBULATES WITH ASSIST OF ROLER WALKER, GAIT SLIGHTLY UNSTEADY. PATIENT TAKES MEDICATION WHOLE WITHOUT DIFFICULTY. PATIENT IS EATING MEALS, AND DRINKING FLUID WELL. PATIENT UNDERSANDS, AND SPEAK LITTLE KINYARWANDA, HE DENIES SUICIDAL/HOMICIDAL IDEATIION. UNABLE TO APPROPRIATELY RESPOND TO FURTHER ASSESSMENT QUESTIONS DUE TO COGNITIVE IMPAIRMENT. LCTA, RESP EVEN/UNABORED, NO SOA/CYANOSIS NOTED. PATIENT IS PLEASNAT, COOPRATIVE WITH CARE. NO SIGN OF ACUTE DISTRESS NOTED AT THIS TIME, NO AGITATION OR AGGRESSIVE BEHAVIOR NOTED, WILL MONITOR FOR SAFETY.
[2019-06-15 16:22] VITALS: BP 133/68
[2019-06-15 20:02] VITALS: BP 155/73
--- NOTE | 2019-06-16 01:00 | NUR ---
Care assumed of patient at 1915: Patient alert and oriented to person only. Patient in hallway at start of shift, yelling and cursing at another nurse. Patient agitated and irritable. Patient re-directed by another nurse and was able to calm down. Patient chose to go to his room for some quiet time. Patient incontinent of bladder and changed his brief. Nurse assisted with senthil care. Patient alert and oriented to person only. Patient confused and forgetful. Patient observed pilfering around in his room. Patient then wandering in the [place] and came to the day room. Patient visualized pilfering around the dayroom, moving from couch to chair to chair. Restless. Patient provided HS snack which he ate 100% of. Patient then visualized attempting to take other peers snacks. Patient required re-direction and became agitated when re-directed. Patient denies pain or discomfort. Patient took HS medication whole without difficulty. Patient provided PRN medication to assist with insomnia. Patient has yet to be asleep this shift. Patient visualized laying down but continues to pilfer with linens on bed, pillows and clothing. Patient states that he is OK but continues to be restless. Patient has shown no physical aggression this evening. No s/s of delusional or paranoia behaviors. No s/s of AH/VH. Denies SI/HI.
[2019-06-16 09:22] VITALS: BP 115/59
--- NOTE | 2019-06-16 13:08 | NUR ---
0700: Assumed care this morning. Pt pleasant and sleepy but easily arousable. Vitalsare stable. Able to ambulate around with walker support. took breakfast and AM medications without any issues. Calm and cooperative. Pericare and diaper change. Participated on the 0900 group therapy. 1200: Pt able to feed self. good appetite. Aware of the surrounding. Communicates well with staff. Will continue with plan of care.
[2019-06-16 21:18] VITALS: BP 132/61
[2019-06-17 02:35] VITALS: BP 132/61
--- NOTE | 2019-06-17 02:39 | NUR ---
PATIENT HAS BEEN UP AND DOWN TONIGHT FROM BED. HE SAT OUT IN DR AND HAD HS SNACK THIS EVENING. HE WENT TO BED AND SLEPT TILL 2300 AND GOT BACK UP. HE STAYED UP IN DR AND THEN WAS INCONTINENT AND WENT BACK TO ROOM WHERE CURATOR [employer] ASSISTED IN CHANGING HIM. PATIENT BACK TO BED FOR AN HOUR AND BACK UP AGAIN. PATIENT IS SITTING UP IN A CHAIR WITH HIS WALKER IN FRONT OF HIM AND DOZING OFF AND ON. HE REFUSES TO GO BACK TO BED WHEN ASKED. PATIENT HAS BEEN CALM BUT CONTINUES TO BE IMPULSIVE AND DIFFICULT TO REDIRECT AT TIMES. WILL CONTINUE TO MONITOR.
[2019-06-17 07:00] VITALS: BP 125/74
--- NOTE | 2019-06-17 14:33 | NUR ---
Sw sent out the following referrals today: [facility], [facility], [facility], [facility], [facility], [facility], [facility] ( no secure beds).
--- NOTE | 2019-06-17 16:10 | NUR ---
[place] denied this pt. Sw called and checked in with family to provide an update.
--- NOTE | 2019-06-17 18:22 | NUR ---
0715: Report rec from noc shift, care assumed. [id number]: Ambulatory with walker in halls and to DR, feeds self, appetite good, takes meds whole w/o difficulty. Visits with other pts at times, smiles at staff, cooperative, pleasant.
[2019-06-17 20:24] VITALS: BP 132/81
--- NOTE | 2019-06-18 01:01 | NUR ---
Care assumed of patient at 1915: Patient alert and oriented to person and place. Patient confused and forgetful. Patient has been pacing from his room to day room several times this shift. Patient will go to his room approximately once per hour and use the bathroom, wet his hair down, brush his teeth, wash his face. Patient has yet to fall asleep this evening. Patient currently sitting in day room. Patient took HS medication whole without difficulty. Patient compulsive about counting his pills before he takes them. Patient ate 100% HS snack. Patient has appeared to be more hungry during the evening time. Patient easily agitated when re-directed. Patient has his routine and becomes irritable when that is interrupted. Patient denies pain or discomfort. Denies SI/HI/AH/VH. No s/s of paranoia or delusional behaviors. No physical or verbal aggression reported or observed.
--- NOTE | 2019-06-18 11:33 | NUR ---
HAS BEEN ATTEMPTING TO TAKE CARE OF PEERS-INSISITING THAT A PEERS ART WORK WAS HIS AND THEN TEARING IT OFF THE WINDOW AND TEARING IT UP-CONSTANTLY IN BR WHEN IN ROOM WASHING AND RE-WASHING HANDS. GAIT STEADY WITH USE OF ROLLER WALKER
[2019-06-18 12:14] LABS: ABSOLUTE NEUTROPHILS 5.4 thou/uL (1.4-8.2); BASOPHILS 0.5 % (0.0-2.0); EOSINOPHILS 2.4 % (0.0-3.0); HEMATOCRIT 37.1 % (42.0-52.0); HEMOGLOBIN 11.9 gm/dL (14.0-18.0); LYMPHOCYTES 23.2 % (24.0-44.0); MCH 28.4 pg (26.0-34.0); MCHC 32.1 g/dL (28.0-37.0); MCV 88.4 fL (80.0-100.0); MONOCYTES 8.2 % (1.0-8.0); PLATELET COUNT 311 thou/uL (150-400); POLYS 65.7 % (36.0-66.0); RDW 15.1 % (10.5-14.5); WBC 8.1 thou/uL (4.0-11.0)
[2019-06-18 12:21] LABS: CALCIUM 8.9 mg/dL (8.5-10.1); CREATININE 0.7 mg/dL (0.7-1.3); POTASSIUM 4.5 mmol/L (3.5-5.1)
--- NOTE | 2019-06-18 13:26 | NUR ---
Date of Admission: 05/27/19 Date of Activity Therapy Assessment: 05/30/19 Activity Goal: Support/increase reality orientation Initial Goal: 1 Group activity/day Weekly progress towards goal: Did not achieve goals Group participation level: Needs some assistance Behaviors observed: Patient has participated in some groups, but not in consistent fashion. Patient continues to wander unit and complete tasks he sets for himself such as general housekeeping. Plan: No change towards goal
[2019-06-18 20:27] VITALS: BP 107/46
--- NOTE | 2019-06-18 21:39 | NUR ---
PT AWAKE AND BRUSHING TEETH IN THE SINK UPON ARRIVAL TO SHIFT. STEADY GAIT WTIH WALKER, POSTURE UPRIGHT GOOD EYE CONTACT. COMPLIANT WTIH MEDS. PT RESTING IN BED. NO SNACK THIS GEOVANNY.
--- NOTE | 2019-06-19 03:39 | NUR ---
PT AWAKENED X 3 TIMES. PT IN RESTROOM CHANGING PANTS AND BREIF, REDIRECTED TO RETURN TO BED. PT ALSO WALKED IN LOUISE TO DAY ROOM AND RETURNED SELF TO BED.
[2019-06-19 07:15] VITALS: BP 136/55
--- NOTE | 2019-06-19 07:30 | NUR ---
Assumed care of patient this am. Patient in mileu sitting at table. Patients affect relaxed. Patient ambulates with walker. Patient in good spirits. Assessment showed clear breath sounds, active bowel sounds, heart tones s1 and s2 present. Patient takes medications whole with water.
[2019-06-19 08:00] VITALS: BP 136/57
--- NOTE | 2019-06-19 10:00 | NUR ---
Patient has swelling in the ankles with the right ankle being more swollen. Patient does report pain when ankles are touched.
--- NOTE | 2019-06-19 15:07 | NUR ---
SW sent new referrals to: [facility], [facility], [facility], [facility], [facility], [facility], [facility], [facility], and [facility].
[2019-06-19 20:48] VITALS: BP 130/65
--- NOTE | 2019-06-20 01:19 | NUR ---
THIS NURSE ASSUMED CARE OF PATIENT AT APPROXIMATELY 1915. PATIENT WAS IN THE DAY ROOM WHILE CONDUCTING ONE TO ONE WITH PATIENT. HE IS ALERT AND ORIENTED X2-3. HE APPEARS WITH A FLAT BLUNTED AFFECT. DURING PHYSICAL ASSESSMENT HE CONTINUED TO LITTLE THE ASSESSMENT MOVING THIS NURSES STETHOSCOPE AND TALKING LOUDLY. PATIENT WOULD APPEAR SMILING AT TIMES DURING ASSESSMENT. HE HAD A NEAT APPEARANCE, HAIR WELL GROOMED. HE DID NOT REPORT ANY SI HI ET HALLUCINATIONS, NOR DID HE APPEAR TO BE RESPONDING TO ANY INTERNAL STIMULI. HE DID NOT APPEAR TO BE IN ANY MEDICAL DISTRESS. AFTER APPROXIMATELY TWENTY MINUTES AFTER ASSESSING PATIENT HE APPEARED WITH HIS EYES CLOSED AND DROOLING. HE OPENED HIS EYES SPONTANEOUSLY TO THIS NURSES VOICE AND REDIRECTED PATIENT TO ROOM TO LAY DOWN. NURSING WILL MAINTAIN Q12 CHECKS TO ENSURE SAFETY AT ALL TIMES.
[2019-06-20 08:34] VITALS: BP 136/72
--- NOTE | 2019-06-20 10:21 | NUR ---
BRENDEN sent new referrals to the following [place]: [facility], [facility] Esc[facility] Pu[facility], and [facility]
[2019-06-20 13:51] VITALS: BP 143/70
[2019-06-20 15:18] VITALS: BP 143/70
--- NOTE | 2019-06-20 18:25 | NUR ---
THE PATIENT WAS BEEN RESTLESS TODAY. HE AMBULATES WITH A WALKER AND HE IS ON FALL PRECAUTIONS. HIS GAIT IS UNSTEADY WITH THE WALKER. THE PATIENT CAN BE RUDE TO STAFF. HE HAS BATHROOM PRIVILEGES. HE SPEAKS OCCITAN BUT DOES UNDERSTAND SOME BURUNDIAN. HE WAS HESITANT ABOUT TAKING HIS MEDICATIONS DURING LUNCH AND B/P AT 1700. HE DENIED PAIN.
--- NOTE | 2019-06-20 18:35 | NUR ---
THE PATIENT HAS BEEN RESTLESS TODAY. HE AMBULATES WITH A WALKER AND IS UNSTEADY. HE HAS BATHROOM PRIVILEGES. THE PATIENT WAS HESITANT TO TAKE HIS MEDICATION AND B/P TODAY BUT BECAME COMPLIANT LATER. HE HAS HAD NO ISSUES TODAY.HE SPEAKS TURKMEN BUT DOES UNDERSTAND SOME FILIPINO.
[2019-06-20 19:48] VITALS: BP 111/62
--- NOTE | 2019-06-21 01:58 | NUR ---
Assumed care of pt @1900. pt is alert and oriented. able to answer to short questions in sao tomean. pt took all his meds with no resistance. pt recieved 6mg of melatonin and that seemed to help him sleep. pt ambulates with a walker. pt was pacing alot before he finally went to bed. pt requires some assistance with changing his brief. nurse adviced pt to elevate lower ext due to +2 edema. no s/s of distress. bed alarm on. will cont to monitor
[2019-06-21 09:01] VITALS: BP 118/59
--- NOTE | 2019-06-21 09:24 | NUR ---
0700 REPORT recieved from overnight shift, patient cooperative, ate breakfast and took medication without incidence. Patient walks around with walker ambulates well. Will continue to monitor patient for safety.
[2019-06-21 11:51] VITALS: BP 118/59
--- NOTE | 2019-06-21 14:59 | NUR ---
Nutrition follow up: No new nutrition concerns. Continues on a heart healthy (no lactose) diet. Eating remarkable - consuming 100% of almost every single meal. 98% meal average calculated per last 10 recorded meals. There was concern for possible 5-9# wt loss earlier in May last month, but new unit weights now indicate positive, healthy wt gain. Up from 130.7# on 05/28 to most recent wt of 134.2# yesterday on 06/20. Keep as low nutrition risk, no further interventions indicated at this time.
[2019-06-21 19:38] VITALS: BP 144/58
--- NOTE | 2019-06-21 21:34 | NUR ---
PT PACING IN LOUISE AND HIS ROOM WITH WALKER. PT WALKED IN HALLWAY SHUFFLING AND WAS REDIRECTED TO USE WALKER. PT WOULD NOT SWALLOW HIS PILLS UNTIL HE CAME TO THE DAY ROOM AND SAT IN A CHAIR. PT IS HUNCHED OVER WHILE WALKING, GOOD EYE CONTACT, BLUNTED AFFECT. PT NOT VERBAL OR TALKING TO HIMSELF THIS GEOVANNY IN [place] OR UPPER SORBIAN, BLE EDEMA REMAINS.
--- NOTE | 2019-06-22 01:48 | NUR ---
PT AWAKENED AND WAS INCONTINENT. PT WANDERED INTO THE LOUISE AND WAS RESISITIVE TO RETURNING TO ROOM TO HAVE INCONTINENCE CARE. PT WHILE SITTING ON TOILET SLAPPED MALE STAFF ACROSS HIS FACE AND MADE TWO FISTS, IN RESPONSE TO ASKING PT TO RAISE HIS LEGS FOR NEW BRIEF TO BE PLACED ON. PT HAD EYE CONTACT AND PUCKERED JAW AND STARING TENSE EYES WHEN HE WAS PHYSICALLY AGGRESSIVE. PT RETURNED TO BED. PT SHORTLY AFTER AWAKENED AND WAS REARRANGING SHELVES. PT VERBALLY INSTRUCTED BY FEMALE STAFF TO PUT ON PANTS HE COMPLIED AND AMBULATED IN LOUISE TO DAY ROOM, WHERE HE SAT IN CHAIR AND WAS PROVIDED SNACK. PT PACING LOUISE WITH WALKER.
--- NOTE | 2019-06-22 03:00 | NUR ---
PT RETURNED TO HIS ROOM APPROXIMATELY 0200.
--- NOTE | 2019-06-22 06:04 | NUR ---
pt was up off and on all night. pt is slouched and slow moving but resistive to laying down and trying to sleep.
--- NOTE | 2019-06-22 07:00 | NUR ---
Assumed care of patient this am. Patient sitting in wheel chair in the mileu with his eyes closed. Patient appeared calm with a soft affect. Patient denies overall pain. Patient takes medications whole with thin fluids. Assessment revealed clear breath sounds bilaterally, active bowel sounds, and s1 s2 present during auscultation. Patients ankles swollen with the right ankle more taught.
--- NOTE | 2019-06-22 08:53 | NUR ---
SW called and followed up with all the referrals that were sent over the weekend, all have denied this pt. BRENDEN called and reportred this to his dght who was encouraged to call and follow up with some placements to make an appeal to their decision.
[2019-06-22 09:37] VITALS: BP 125/60
[2019-06-22 14:11] LABS: HEMATOCRIT 36.7 % (42.0-52.0); HEMOGLOBIN 11.8 gm/dL (14.0-18.0); MCH 28.1 pg (26.0-34.0); MCHC 32.1 g/dL (28.0-37.0); MCV 87.5 fL (80.0-100.0); RBC 4.19 mil/uL (4.50-6.00); RDW 14.8 % (10.5-14.5); WBC 6.4 thou/uL (4.0-11.0)
[2019-06-22 14:25] LABS: CALCIUM 9.3 mg/dL (8.5-10.1); CREATININE 0.8 mg/dL (0.7-1.3); POTASSIUM 4.5 mmol/L (3.5-5.1)
--- NOTE | 2019-06-22 18:01 | NUR ---
patient refused 1700 meds, this nurse gave medication education, patient stated 'no no.' will monitor vss, no s/s of distress, no significant bx observed.
[2019-06-22 23:34] VITALS: BP 113/58
--- NOTE | 2019-06-23 02:48 | NUR ---
ASSUMED CARE OF PATIENT AT APPROXIMATELY 1915, 06/22/19. PATIENT APPEARS WITH A FLAT BLUNTED AFFECT DURING ONE TO ONE WITH PATIENT. HE WAS COOPERATIVE WITH ASSESSMENT AND TOOK HS MEDS PRESCRIBED WITH NO ISSUES. HE HAS BECOME FRUSTRATED AT TIMES, SPEAKING FAST IN [place], THEN WOULD RETURN TO HIS ROOM. HE HAS BEEN UP PACING THE HALLS SEVERAL TIMES IN THE EVENING. HE DID NOT REPORT SI/HI NOR DID IT APPEAR HE WAS EXPERIENCING ANY A/V/H. HE IS MOSTLY COOPERATIVE AND EASILY REDIRECTABLE DESPITE LANGUAGE BARRIER. HE DID NOT REPORT MEDICAL CONCERNS AND DOES NOT APPEAR TO BE IN DISTRESS. NURSING WILL MAINTAIN Q12 CHECKS TO ENSURE SAFETY AT ALL TIMES.
[2019-06-23 10:15] VITALS: BP 130/78
--- NOTE | 2019-06-23 10:38 | NUR ---
0702 Report received from overnight shift, patient ate breakfast took medication without incidence. Lidocaine patch applied to Lt lower back. patient cooperative, ambulates with a walker. Will continue to monitor patient for safety.
[2019-06-23 13:07] VITALS: BP 146/56
--- NOTE | 2019-06-23 13:48 | NUR ---
Date of Admission: 05/27/19 Date of Activity Therapy Assessment: 05/30/19 Activity Goal: Support reality orientation and daily structure Initial Goal: 1 Group activity/day Weekly progress towards goal: Did not achieve goals Group participation level: Needs some assistance Behaviors observed: Patient continues to wander unit and complete tasks he sets for himself such as housekeeping duties around the unit. Patient has participate in some groups, but not in consistent fashion. He is more inclined to participate in art or physical activities. Plan: No change towards goal
[2019-06-23 20:14] VITALS: BP 146/67
--- NOTE | 2019-06-24 00:24 | NUR ---
PATIENT ASSESSED AND IS ALERT X SELF ONLY. HAS BEEN COOPERATIVE THIS SHIFT SO FAR. SKIN WARM AND DRY. RESP EVEN AND UNLABORED. HAS LEFT LEG EDEMA AND ANKLES AND FEET ABOIUT 2+-3+. LEFT LEFT MORE SWOLLEN THEN RIGHT LEG. RIGHT ANKLE AND FEET ABOUT 2+ EDEMA NOTED. TAKES MEDCICATION WHOLE WITH WATER. KATLYN WELL. CHANGES BREIF AND PJ'S PER SOME ASSISTANCE. WALKS WITH WALKER IN ROOM AND HALLWAY. DR STARTED HIM ON LASIX FOR THE FLUID. LAST BM WAS 06/16. VS STABLE. TALKED TO DR TAPIA AND WANTED TO BE NOTIFIED IF PATIENT WAS AWAKE AT MIDNIGHT. PATIENT SLEEPING ALL READY FOR ABOUT AN 1 AND 1/2 AT MIDNIGHT. US DONE TO RIGHT ANKLE AND TEST WAS NEGATIVE. HAS HAD A PREVIOUS HIP FX IN THE PAST OF LEFT SIDE. LIDOCAINE PATCH REMOVED PER ORDERS. NO SI/HI NOTED THIS SHIFT. CONT PLAN OF CARE. MELATONIN GIVEN WITH FAIR RESULTS. NO AGGRESSION BEHAVIOR. ADMITTED FOR DEMENTIA NAD AGGRESSION BEHAVIORS. DENIES ANY PAIN.
--- NOTE | 2019-06-24 03:29 | NUR ---
PATIENT WAS SLEEPING DURING THE TIME AT MIDNIGHT THAT IF HE WOULD STILL BE AWAKE TO CALL MD. BUT HE SLEPT 2 HOURS AND THEN WOKE UP . CALLED AND REMINGTON ORDERED AND GIVEN. BACK TO BED AND HAS BEEN SLEEPING EVER SINCE. NO BEHAVIORS NOTED.
--- NOTE | 2019-06-24 07:00 | NUR ---
Assumed care of patient this am. Patient sitting in wheel chair in the mileu. Patient seems confused this am. Patients affect happy and relaxed. Patient vital signs stable. Patients assessment reveals clear breath sounds, active bowel sounds, and s1 s2 heart tones present. Patient takes medications whole with drink.
--- NOTE | 2019-06-24 08:13 | NUR ---
BRENDEN is working with [facility] for placement. Provided a signed consent to release information regarding the medicaid application and reported to family about the delay in d/c. Family is patiently understanding and reported that they are unable to take care of him at home.
[2019-06-24 09:28] VITALS: BP 127/51
[2019-06-24 20:25] VITALS: BP 134/55
--- NOTE | 2019-06-24 21:57 | NUR ---
PT ASLEEP IN W/C IN DAY ROOM UPON ARRIVAL TO SHIFT. PT COMPLIANT WITH MEDICATIONS AND SNACK. POOR EYE CONTACT, MINIMAL AND MUMBLED SPEECH.
[2019-06-25 10:32] VITALS: BP 129/66
--- NOTE | 2019-06-25 10:41 | NUR ---
0702 Report received from overnight shift, patient did sleep 9 hours. Patient ate breakfast and took medication without incidence. Patient is using a wheelchair due to edema in both feet and left knee pain. Dr ortega ordered cortisone injection for knee. Patient is cooperative no aggression.
[2019-06-25 19:30] VITALS: BP 116/56
[2019-06-25 22:59] VITALS: BP 128/76
--- NOTE | 2019-06-26 02:55 | NUR ---
PT OUT IN DAYROOM IN WC. ABLE TO MOVE ABOUT THE UNIT W/O ASSIST. AFTER SNACKS, PT TOOK HS MEDS W/O PROBLEM. MORE RELAXED AND SELF RELIANT. SLEPT INTERMITTANTLY THROUGH THE NIGHT.
--- NOTE | 2019-06-26 07:00 | NUR ---
Assumed care of patient this am. Patient sitting in mileu in a wheelchair. Patient sleeping but easily arousable. Patient takes medications whole with drink. Patient ambulates with wheelchair. Patient states that he is having pain in his right knee. Patient is clean and tidy. Assessment reveals clear breath sounds, active bowel sounds, s1 and s2 present. Patients affect is soft and happy.
[2019-06-26 08:22] VITALS: BP 120/60
[2019-06-26 20:25] VITALS: BP 126/66
--- NOTE | 2019-06-26 21:53 | NUR ---
PT SITTING IN DAY ROOM IN W/C. RESTLESS PROPELING SELF IN LOUISE AND DAY ROOM. PT OBSERVED IN RESTROOM, TAKING OF HIS CLEAN AND DRY PANTS AND BRIEF AND CHANGING THEM FOR ANOTHER CLEAN AND DRY PAIR. PT COMPLIANT WITH MEDS AND HS SNACK. PT SPEAKING TO SELF SOFTLY IN TURKMEN. PT WILL SPEAK WITH STAFF WHEN ASKED FOR GHANAIAN. PT COMPLIANT WTIH LAYING DOWN FOR BED.
[2019-06-27 07:49] VITALS: BP 113/60
[2019-06-27 10:33] VITALS: BP 113/60
--- NOTE | 2019-06-27 10:39 | NUR ---
0704 Report received from overnight shift, patient ate breakfast took medication without incidence. Patient is calm cooperative, has legs elevated in chair in day room. We will continue to monitor for safety.
[2019-06-27 20:21] VITALS: BP 106/58
--- NOTE | 2019-06-28 05:09 | NUR ---
PATIENT IS ALERT AND ORIENTED X1-2, HE HAS BEEN CALM AND COOPERATIVE, AND APPEARS WITH AN APPROPRIATE AFFECT, EVEN BRIGHT AT TIMES. HE HAS BEEN IN THE DAY ROOM INTERACTING APPROPRIATELY WITH OTHER PEERS AND ALERTING STAFF OF BX OF OTHER PATIENTS. HE NEEDS MINIMAL HELP WITH ADLS. HE TOOK MEDICATIONS PRESCRIBED. HE DID NOT REPORT SI HI SH OR HALLUCINATIONS OR DELUSIONS. HE DID NOT REPORT ANY MEDICAL CONCERNS AND DOES NOT APPEAR TO BE IN DISTRESS. NURSING WILL MAINTAIN ALL PRECAUTIONS TO ENSURE SAFETY AT ALL TIMES.
--- NOTE | 2019-06-28 07:00 | NUR ---
Assumed care of patient this am. Patient sitting up in wheelchair in the mileu. Patient in good spirits. Affect soft and bright. Patients attire neat and tidy. Patient ambulates with a wheelchair. Patient has bilateral swelling in his ankles. Patient has pain in his knees. Patient takes medications whole with fluids. Patients assessment shows clear breath sounds, active bowel sounds, and s1 s2 present.
[2019-06-28 07:30] VITALS: BP 128/73
[2019-06-28 09:07] VITALS: BP 128/73
--- NOTE | 2019-06-28 11:02 | NUR ---
Nutrition: pt seen per followup. Continues on heart healthy diet and eating 100% of nearly every single meal. Pt on daily stool softener but no recent BM documented. Weights have favorably trended upward a total of 6# since admit to unit. Continue as low nutrition risk.
--- NOTE | 2019-06-28 16:04 | NUR ---
BRENDEN called and spoke with Lizz and provided an update. Lizz is leaving the counry today. Pt is still pending Medicaid and family is still actively particpating in this.
[2019-06-28 19:45] VITALS: BP 115/63
--- NOTE | 2019-06-28 20:40 | NUR ---
HEIDI VEGA NOTIFIED THIS NURSE THAT PATIENT WAS LAYING ON FLOOR. WHEN I WENT IN HE WAS CURLED UP ON HIS RIGHT SIDE AND APPEARED SLEEPY. HIS WC WAS PUSHED AWAY FROM HIM BY THE DOOR OF ROOM. PATIENT WAS OUTSIDE BATHROOM DOOR. PATIENT IS KNOWN TO LAY HIMSELF DOWN ON THE FLOOR. UNSURE IF HE DID THIS TIME OR NOT. ASSESSMENT DONE. NO BRUISES OR BLEEDING ANYWHERE. PATIENT DENIES PAIN. HELPED PATIENT BACK UP INTO WC AND VITAL SIGNS DONE. 115/63, 87, 98.0 20 100% 02 RA. PATIENT BROUGHT OUT TO SIT IN WC AT TABLE IN DINING ROOM. PATIENT IS HAVING A SNACK NOW. THIS NURSE CONTACTED DR TAPIA AND HOSPITALIST BEATRIZ GOMEZ NP. MESSAGE LEFT ON PATIENT'S 'S HOME PHONE THAT HE WAS ON FLOOR BUT OK AND TO CALL BACK IF QUESTIONS. PATIENT HAD CORTISONE INJECTION RIGHT KNEE WHICH HAS BEEN SWOLLEN WELL HIS FEET. PATIENT MORE DIFFICULT TO PIVOT AND TRANSFER D/T THIS. DR MUÑOZ HAS ORDERED A CHAIR ALARM ON PATIENT WHEN AWAKE AND UP. WILL CONTINUE TO MONITOR. RAILROAD BRAKE REPAIRER, YOLA ALSO NOTIFIED. WILL CONTINUE TO MONITOR.
[2019-06-29 00:45] VITALS: BP 115/63
[2019-06-29 09:03] VITALS: BP 140/74
[2019-06-29 10:42] VITALS: BP 140/74
--- NOTE | 2019-06-29 12:21 | NUR ---
THE PATIENT HAS BEEN QUIET AND COOPERATIVE THIS MORNING. HE FELL ASLEEP IN THE DAY ROOM. HE HAS BEEN COMPLIANT WITH MEDICATIONS. HIS CALLED THIS MORNING BUT DID NOT GET TO SPEAK WITH HER. HIS TRANSPORT IS BY . HE IS NOT TRYING TO GET UP OR AMBULATE TODAY. HE IS INCONTINENT/CONTINENT. THE PATIENT IS RESTING IN A RECLINING CHAIR AT THIS TIME.
[2019-06-29 20:14] VITALS: BP 108/47
[2019-06-29 20:30] VITALS: BP 108/47
--- NOTE | 2019-06-30 02:27 | NUR ---
PATIENT WAS SITTING UP IN RECLINER IN DINING ROOM WHEN I CAME ON FLOOR AT 1900. PATIENT VERY DROWSY, LETHARGIC. HE WOULD LOOK MY DIRECTION WHEN I TALKED TO HIM BUT WOULD/COULD NOT OPEN HIS EYES. I ASSESSED HIM FOR SIGNS OF A STROKE AND WAS NEGATIVE. PATIENT HAS BEEN KEEPING HIS FEET ELEVATED IN THE RECLINER AND HIS BLE EDEMA IS DOWN TO 2+ AND SKIN NOT DISCOLORED. PT TOOK MEDS WITH SOME ASSISTANCE DUE TO DROWSINESS. HE EVENTUALLY WAS ABLE TO OPEN HIS EYES. WE PUT HIM TO BED BUT HE WAS AWAKE AGAIN IN AN HOUR. HE HAD INCONTINENT CARE DONE AND BROUGHT HIM BACK OUT TO THE DINING ROOM IN RECLINER. HE HAS BEEN SLEEPING FOR THE MOST PART. HE WAS COLD SO GAVE HIM A BLANKET. PATIENT USING WC NOW D/T INCREASED WEAKNESS AND DROWSINESS SINCE CORTISONE INJECTION A FEW DAYS AGO. CONTINUING TO MONITOR.
--- NOTE | 2019-06-30 03:26 | NUR ---
PATIENT HAS BEEN OUT AND WALKING AROUND THE HALLS EARLIER IN THE EVENING. HER GAIT IS A LITTLE WOBBLY AT TIMES. HAD PATIENT COME AND SIT IN DINING ROOM TO WATCH TV AND SHE DID FOR A WHILE AND THEN WALKED HER TO HER ROOM FOR BED. PATIENT'S HAND MOVEMENTS AND RESPONSES ARE VERY SLOW. SHE ALSO IS CONFUSED. SHE GOT UP TO USE THE BATHROOM. I WAS WALKING WITH HER AND SHE STOPPED AND LOOKED IN THE BATHROOM AND THEN WALKED ON BY. WHEN I ASKED HER WHERE SHE WAS GOING, SHE SAID SHE WAS LOOKING FOR THE BATHROOM. I LEAD HER BACK TO HERS. SHE USED THE BATHROOM AND THEN JUST STOOD AT THE SINK, NOT KNOWING WHAT SHE WAS TO DO NEXT. DIRECTED HER BACK TO BED WITH ALARM ON AND IN LOW POSITION. SHE GOT UP AN HOUR LATER. SHE WAS BROUGHT OUT TO SIT IN A RECLINER WITH A LAP LANCE BECAUSE SHE WAS SO UNSTEADY ON HER FEET. PATIENT IS SLEEPING IN THE RECLINER AT THIS TIME. PATIENT HAD IV FLUIDS ON DAY SHIFT AND IV CATHETER IN RIGHT FOREARM. NO S/S OF INFECTION. SITE IS WRAPPED WITH GUAZE. PATIENT TO HAVE LABS ON 07/01 AND SEE IF NEEDS MORE FLUIDS. CONTINUING TO MONITOR. AT THIS TIME. PATIENT TAKING MEDS WHOLE WITH FLUID.
--- NOTE | 2019-06-30 07:00 | NUR ---
Assumed care of patient this am. Patient groggy, sitting in wheelchair in [facility]. Patient has mild pain in his knees. Patient ambulates via wheelchair. Patient takes medications whole with fluids. Patients affect is relaxed. Patients assessment reveals clear breath sounds, active bowel sounds, and s1 s2 present.
[2019-06-30 07:30] VITALS: BP 113/58
[2019-06-30 11:39] VITALS: BP 113/58
--- NOTE | 2019-06-30 12:48 | NUR ---
Pt has participated in some groups, but not in consistent fashion. Pt continues to wander unit and complete tasks he sets for himself such as general housekeeping. He is more inclined to participate in art or physical activities. Language Barrier. No change towards goal.
--- NOTE | 2019-06-30 14:30 | NUR ---
Sent referals to : [facility], [place] ( delined). Sw spoke with pt's dght and confirmed that they want medicaid for LTC, abd this was relayed to [facility] via email. It appears that there will be a spend down
[2019-06-30 19:27] VITALS: BP 111/59
--- NOTE | 2019-06-30 23:38 | NUR ---
ASSUMED CARE OF PATIENT AT 1915, PATIENT IS ALERT AND ORIENTED X1-2, RECOGNIZES THIS NURSE UPON ONE TO ONE. HE APPEARS WITH AN APPROPRIATE AFFECT, IS CALM AND COOPERATIVE, FOLLOWS SIMPLE COMMANDS, TAKES MEDICATION WHOLE. HE DOES SIT IN THE MILIEU AND WAS OBSERVED HAVING MINIMAL INTERACTIONS WITH OTHER PEERS. HE DID NOT REPORT SI HI SH AND HALLUCINATIONS, DOES NOT APPEAR TO BE RESPONDING TO INTERNAL STIMULI. HE DID NOT REPORT ANY MEDICAL CONCERNS/PAIN. CONTINUES TO HAVE BLE EDEMA. HE DOES NOT APPEAR TO BE IN DISTRESS. NURSING WILL MAINTAIN ALL PRECAUTIONS TO ENSURE SAFETY AT ALL TIMES.
[2019-07-01 05:35] LABS: ABSOLUTE NEUTROPHILS 4.9 thou/uL (1.4-8.2); BASOPHILS 0.4 % (0.0-2.0); EOSINOPHILS 1.6 % (0.0-3.0); HEMATOCRIT 34.6 % (42.0-52.0); HEMOGLOBIN 11.1 gm/dL (14.0-18.0); LYMPHOCYTES 25.8 % (24.0-44.0); MCH 28.2 pg (26.0-34.0); MCHC 32.2 g/dL (28.0-37.0); MCV 87.6 fL (80.0-100.0); MONOCYTES 6.7 % (1.0-8.0); PLATELET COUNT 250 thou/uL (150-400); POLYS 65.5 % (36.0-66.0); RBC 3.95 mil/uL (4.50-6.00); RDW 14.6 % (10.5-14.5); WBC 7.5 thou/uL (4.0-11.0)
[2019-07-01 06:02] LABS: ALBUMIN 2.7 g/dL (3.4-5.0); CALCIUM 8.8 mg/dL (8.5-10.1); CREATININE 0.8 mg/dL (0.7-1.3); MAGNESIUM 1.9 mg/dL (1.8-2.4); PHOSPHORUS 3.7 mg/dL (2.5-4.9); POTASSIUM 3.9 mmol/L (3.5-5.1); TOTAL BILIRUBIN 0.2 mg/dL (<0.1-1.0); TOTAL PROTEIN 6.7 g/dL (6.4-8.2)
[2019-07-01 09:02] VITALS: BP 124/42
[2019-07-01 09:40] VITALS: BP 124/42
--- NOTE | 2019-07-01 09:53 | NUR ---
0702 Report received from overnight shift, patient sitting in day room quiet this morning. He ate breakfast took his medication without incidence, patient is cooperative, calm very pleasant.
[2019-07-01 20:15] VITALS: BP 112/45
[2019-07-01 20:30] VITALS: BP 112/45
[2019-07-02 00:08] LABS: GLYCOHEMOGLOBIN (HGB A1C) 6.6 % (4.8-5.6)
--- NOTE | 2019-07-02 03:18 | NUR ---
PATIENT UP TO BATHROOM AT 0300. ASSISTED HIM AND CLEANED HIM AND PUT NEW BRIEF ON. ASSISTED PATIENT TO HIS BED. PATIENT SLEEPING NOW. BED ALARM ON AND BED IN LOW POSITION.
--- NOTE | 2019-07-02 07:00 | NUR ---
Assumed care of patient this am. Patient sitting in mileu in wheelchair beside table. Patient in good spirits smiling and neatly dressed. Patients affect is normal/happy. Patient takes medications whole and likes to count them prior to taking them. Patients vital signs stable, blood sugars stable. Patients assessment reveals clear breath sounds, active bowel sounds, s1 s2 present upon auscultation.
[2019-07-02 07:30] VITALS: BP 120/68
--- NOTE | 2019-07-02 15:15 | NUR ---
BRENDEN received information from SW student that [facility] ([facility]) is interested in pt, but was told some discrepancies with his Medicaid matthew. After BRENDEN spoke with Capri at [facility] and reviewed emails, she realized that pt has Medicaid as secondary insurance; it will need to be primary for insurance to pay for his intermediate stay. BRENDEN contacted Antoine (pts daughter and DPOA) with this information and gave her Medicaid's number to contact and see if she can make that change management consultant the phone. She said between her and her other sister, they will get that done and then call BRENDEN back. BRENDEN team will continue to follow pt during his stay.
--- NOTE | 2019-07-02 16:05 | NUR ---
Simran with [facility] came to meet pt today. She said although they do not have a dementia unit, they do sometimes take pt's with dementia diagnosis. She said she likes pt and will be taking her thoughts back to her team. She said she may have an answer for SW team on Friday. SW team will continue to follow pt during his stay.
--- NOTE | 2019-07-02 18:12 | NUR ---
PT. HAS BEEN PLEASANT AND COOPERATIVE WITH STAFF ALL DAY. NO ACTING OUT, YELLING OUT BEHAVIORS NOTED.
[2019-07-02 20:35] VITALS: BP 104/59
--- NOTE | 2019-07-03 01:38 | NUR ---
ASSUMED CARE FROM DAY SHIFT PT SIITNG UP IN WHEEELCHAIR IN DAYROOM , CALM COOPRATIVE TOOK PO MEDICATION WITH EFFORT . PT UP DURING THE NIGHT INCONTINENT OF URINE , PT CLEAN THEN ASSISTED BACK TO BED . RESTING WELL THROUGHOUT FREQ ROUNDING. WILL CONTINUE WITH CURRENT PLAN OF CARE AND WILL REPORT CHANGES.
[2019-07-03 09:40] VITALS: BP 119/39
--- NOTE | 2019-07-03 12:46 | NUR ---
PATIENT HAS BEEN UP AND OUT ON THE UNIT, SITTING QUIETLY IN A WHEEL CHAIR. PATIENT TOOK ALL MEDICATION WHOLE WITHOUT DIFFICULTY. PATIENT IS EATING MEALS, AND DRINKING FLUID WELL. PATIENT DENIES SUICIDAL/HOMICIDAL IDEATION, NOT COGNITIVE ENOUGH TO RESPOND APPROPRIATELY TO FURTHER ASSESSMENT QUESTIONS. NO AGITATION OR AGGRESSIVE BEHAVIOR NOTED AT THIS TIME. AFFECT IS BRIGHT, MOOD IS HAPPY. CURRENTLY SITTING IN DAYROOM WATCHING TV. INCONTINENT CARE PROVIDED BY STAFF, WILL MONITOR FOR SAFETY.
[2019-07-03 20:10] VITALS: BP 122/62
--- NOTE | 2019-07-04 02:10 | NUR ---
1909-Report received from day shift nurse and care assumed. Koko had a bright affect tonite, calm, alert, cooperative. He went to bed early in the evening after medications and slept soundly until about 0130 only when he was awake/alert/calm and wanted to go the day room instead. He had a bright affect, smiling, talking, watching TV at that time.
[2019-07-04 07:43] VITALS: BP 137/72
--- NOTE | 2019-07-04 15:26 | NUR ---
HAS BEEN PLEASANT AND COOPERATIVE SO FAR THIS SHIFT. ATTENDING SCHEDULED GROUPS-SITTING QUIETLY IN DAYROOM WITH PEERS DURING FREE TIME,DOING COLORING SHEETS. EATING WELL AND DOES FEED SELF-AMBULATED IN HALLWAY X2 WITH ROLLER WALKER AND TOLERATES WELL. COMPLIENT WITH TAKING ALL RX MEDS AND ANY REQUESTS FROM STAFF.LIDODERM PATCH APPLIED PER ORDER BUT WHEN ASKED ABOUT PAIN(VIA FAMILY) DENIES
[2019-07-04 20:01] VITALS: BP 152/68
--- NOTE | 2019-07-05 01:50 | NUR ---
ASSUMED CARE OF PATIENT AT APPROXIMATELY 1915, PATIENT IS ALERT AND ORIENTED X1-2, CALM AND COOPERATIVE, APPEARS WITH A LABILE AFFECT AT TIMES. HE IS PLEASANT, AND MED COMPLIANT. HE DENIED SI HI WELL HALLUCINATIONS. HE DENIES MEDICAL CONCERNS, NO COMPLAINTS OF PAIN AT TIME OF ASSESSMENT. NURSING WILL MAINTAIN ALL PRECAUTIONS TO ENSURE SAFETY AT ALL TIMES.
[2019-07-05 05:46] LABS: ABSOLUTE NEUTROPHILS 4.6 thou/uL (1.4-8.2); ABSOLUTE RETIC COUNT 0.0585 10^6/uL; BASOPHILS 0.3 % (0.0-2.0); EOSINOPHILS 2.3 % (0.0-3.0); HEMATOCRIT 38.7 % (42.0-52.0); HEMOGLOBIN 12.3 gm/dL (14.0-18.0); MCH 27.9 pg (26.0-34.0); MCHC 31.7 g/dL (28.0-37.0); MCV 87.9 fL (80.0-100.0); MONOCYTES 7.7 % (1.0-8.0); OBSERVED RETIC COUNT 1.33 % (0.6-2.6); PLATELET COUNT 266 thou/uL (150-400); POLYS 65.7 % (36.0-66.0); RDW 15.2 % (10.5-14.5)
[2019-07-05 05:58] LABS: % SATURATION 11 % (20-39); IRON 36 ug/dL (65-175); TIBC 319 ug/dL (250-450)
[2019-07-05 06:01] LABS: ALBUMIN 3.1 g/dL (3.4-5.0); CALCIUM 8.8 mg/dL (8.5-10.1); CREATININE 0.7 mg/dL (0.7-1.3); MAGNESIUM 1.9 mg/dL (1.8-2.4); PHOSPHORUS 3.6 mg/dL (2.5-4.9); POTASSIUM 3.9 mmol/L (3.5-5.1); TOTAL BILIRUBIN 0.3 mg/dL (<0.1-1.0); TOTAL PROTEIN 7.4 g/dL (6.4-8.2)
--- NOTE | 2019-07-05 07:00 | NUR ---
Assumed care of patient this am. Patient awake sitting in the mileu at the table. Patient in good spirits, smiling and happy. Patients affect calm and bright. Patient ambulates via walker and wheelchair. Patient takes medications whole with fluids. Patients assessment reveals clear breath sounds, active bowel sounds, and s1 s2 present upon auscultation.
[2019-07-05 07:48] VITALS: BP 141/68
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
--- NOTE | 2019-07-05 11:34 | NUR ---
Nutrition: Seen per weekly follow up. No new nutrition changes. Pt continues to consistently consume 100% of almost all meals. Averaging ~98% of meals per the last 15 recorded meals. Visited with pt in day area today. He agrees with good intake, denies wanting any food/menu changes. No new concerns to report. Last documented BM from 06/29, but pt remains on scheduled bowel regimen BID. Also continues on potassium chloride, magnesium, MVI w/ minerals. Per daily labs, all electrolytes for K+, Mag, and Phos well WNL. Remains within 1-2# of wt from > 1 mo ago (130.7# on 05/28 to 132.5# on 07/03). Low nutrition risk.
--- NOTE | 2019-07-05 16:09 | NUR ---
BRENDEN spoke with Wendy, pt's daughter, who said they resolved the issues with Medicaid; Medicaid is now pt's primary insurance provider. They have also opted to take the spend down offer. She said she reviewed the [facility] today, and thought it was an okay facility. She said that someone suggested [facility], but she does not want her father sent there. She asked that BRENDEN team send another referral to [facility] since pt's insurance information has changed. BRENDEN team will continue to follow pt during his stay.
[2019-07-05 20:22] VITALS: BP 132/58
[2019-07-06 02:47] VITALS: BP 132/58
--- NOTE | 2019-07-06 03:37 | NUR ---
PT OUT IN DAY ROOM AT START OF SHIFT. WATCHING FOOTBALL GAME ON TV. TOOK HS MEDS AFTER SNACKS AND HAS BEEN CALM AND COOPERATIVE. IN AND OUT OF ROOM MUCH OF THE NIGHT. CURRENTLY RESTING QUIETLY IN ROOM.
--- NOTE | 2019-07-06 07:57 | NUR ---
Assumed care of patient this am. Patient resting in wheelchair in [facility]. Patient responds appropriately to questions. Patients affect soft and calm. Patient takes medications whole with fluids. Patient ambulates via wheelchair or walker. Patients assessment reveals clear breath sounds, active bowel sounds, s1 s2 present upon auscultation.
[2019-07-06 09:56] VITALS: BP 121/67
--- NOTE | 2019-07-06 12:58 | NUR ---
Woody met with family and provided LTC education and the expectations of secure units. Woody called and left a VM with [facility] asking for a decision and a d/c date.
--- NOTE | 2019-07-06 14:04 | NUR ---
This pt was accepted at the [facility] and will d/c ther eat 9am on TR 07/08. Family and staff have bene notified.
[2019-07-06 20:34] VITALS: BP 110/50
--- NOTE | 2019-07-07 04:21 | NUR ---
ASSUMED CARE @ 19:15 ON 07/06/19. IN DAY ROOM SITTING IN W/C AT A TABLE. ATE SNACK AND WENT TO ROOM. COOPERATED WITH ASSESSMENT, TOOK HS MEDS WHOLE WITH APPLE JUICE. TOILET X 2 WITH X1 STAFF MEMBERS ASSISTING. INCONTINENT OF BLADDER, WETTING BRIEF, HOSPITAL PIJAMA PANTS, AND WHEN IN BED WETTING SHEETS AND CHUCKS. NOTED TO BE CONTINENT OF BOWEL, LARGE, MEDIUM BROWN AND MEDIUM FIRMNESS, NEITHER TOO HARD NOR DIARRHEA. WILL CONTINUE TO OBSERVE Q 12 FOR PATIENT SAFETY. BED IN LOW POSITION, BED ALARM SET.
[2019-07-07 08:00] VITALS: BP 136/84
--- NOTE | 2019-07-07 08:00 | NUR ---
PT AWAKE IN DINNING ROOM. PT IN W/C AT THIS TIME. PT DENIES ANY PAIN TO KNEES AT THIS TIME. PT TOLERATING DIET AND TAKING MEDS WHOLE.
--- NOTE | 2019-07-07 13:21 | NUR ---
Pt continues to increase participation to ability in groups. More inclined to participate in physical or art based recreation mainly due to the language barrier.
[2019-07-07 17:18] VITALS: BP 134/60
--- NOTE | 2019-07-08 05:18 | NUR ---
1909-Report received from day shift nurse and care assumed. He had a bright smile on his face this evening, socialable with staff. He was told he is going to be discharged tomorrow and talked all day about it per report, with smiles. He slept in his bed at beginning of the shift and then wanted to go to the day room, where he was quiet and again with a bright affect.
--- NOTE | 2019-07-08 07:59 | NUR ---
Pt is discharging to [facility] [phone] at 900. Pt will be [place] dup by transportation van. All d/c orders are faxed and packet updated.
[2019-07-08] MEDS ORDERED: FLOMAX0.4 MG PO (08:46)
[2019-07-08] MEDS ORDERED: LIPITOR40 MG PO (08:48)
[2019-07-08] MEDS ORDERED: CARVEDILOL12.5 MG PO (08:48)
[2019-07-08] MEDS ORDERED: ZONISAMIDE 100100 M1 PO (08:49)
[2019-07-08] MEDS ORDERED: VIMPAT100 MG PO (08:49)
[2019-07-08] MEDS ORDERED: ZYPREXA 5 MG TAB5 M2 PO (08:50)
[2019-07-08] MEDS ORDERED: ZYPREXA 5 MG TAB5 M1 PO ×2 (08:50)
[2019-07-08] MEDS ORDERED: KLOR-CON 10 ER10 MEQ PO (08:51)
[2019-07-08] MEDS ORDERED: SENNA-TIME S T1 EACH PO (08:52)
[2019-07-08] MEDS ORDERED: PEPCID20 MG PO (08:52)
[2019-07-08] MEDS ORDERED: SYNTHROID75 MCG PO (08:52)
[2019-07-08] MEDS ORDERED: FINASTERIDE5 MG PO (08:53)
[2019-07-08 09:18] VITALS: BP 109/51
[2019-07-08 09:37] VITALS: BP 109/51
--- NOTE | 2019-07-08 09:45 | NUR ---
0700 Report received from overnight shift, patient ate breakfast took his medication without incidence. Patient is discharging to [facility] at 09:00 AM, patient's scripts and discharge info faxed to facility. Patient cooperative,calm and happy to go to next placement.
--- NOTE | 2019-07-09 15:21 | D ---
[facility] [place] [address] DISCHARGE SUMMARY Name: JEREMIAH JAY Room #: 526A-A [facility] IN M.R.#: [id number] Admission: 05/27/19 Attend Phys: Aguilar Ceja DO Discharge: 07/08/19 Date of : 45 Report #: [id number] THIS REPORT FOR: //name// CC: Aguilar Ceja [facility] physician/PCP DATE OF SERVICE: 07/08/2019 INPATIENT PSYCHIATRIC DISCHARGE SUMMARY ATTENDING PHYSICIAN: Aguilar Ceja DO SLEEVE SEPARATOR AT THE TIME OF DISCHARGE: Andrea Domingo MD DISCHARGE DIAGNOSES: Major neurocognitive disorder, likely due to Alzheimer's disease with behavioral disturbance, relatively improved. MEDICAL COMORBIDITIES: Diabetes mellitus type 2, A1c 6.6, well controlled on glipizide; hypokalemia and hypomagnesemia by history; constipation, on stool softener; degenerative joint disease of the right knee, treated with ice pack; hypertension, on low-dose Coreg; hyperlipidemia, continue statin and Synthroid 75 mcg p.o. daily; seizure disorder, pharmacoresistant, on lacosamide and Zonisamide as well as Depakote for mental function; anemia, 11 to 13.1. Stool sent for hemoccult blood. Due to the patient's advanced dementia, he is not going to be a candidate for any intervention in the outside chance of colon cancer. The patient is discharged to the [facility] for memory care, psychiatric and medical care to be performed by the receiving facility. DIET: Heart healthy. MEDICATIONS: Melatonin 6 mg p.o. at bedtime p.r.n. insomnia; multivitamin p.o. daily; Coreg 3.125 mg twice daily for hypertension; atorvastatin 40 mg p.o. at bedtime for hyperlipidemia; Vimpat which is lacosamide 200 mg oral twice daily for seizure disorder and Zonisamide 300 mg oral twice daily for seizure disorder; olanzapine 15 mg p.o. at bedtime for impulse control, olanzapine 5 mg oral daily at 1700 hours, 10 mg oral at 1400 hours; potassium chloride 30 mEq oral daily at 0900; Senna-S 2 tabs oral twice daily; famotidine 20 mg oral daily for GERD; levothyroxine 75 mcg oral daily for hypothyroidism, recommend checking TSH level in 1 week; finasteride 5 mg oral daily for BPH and tamsulosin 0.4 mg p.o. daily for BPH. LABORATORY DATA: This admission, sodium 138, potassium 3.9, chloride 103, bicarb 27, anion gap 8, BUN 14, creatinine 0.7, glucose 116; this is on 07/05. Estimated average glucose 143 with A1c of 6.6, calcium 8.8, phosphorus 3.6, [address] [address] DISCHARGE SUMMARY Name: JEREMIAH JAY Room #: 526A-A [facility] IN M.R.#: [id number] Admission: 05/27/19 Attend Phys: Aguilar Ceja DO Discharge: 07/08/19 Date of : 45 Report #: [id number] magnesium 1.9. Iron 36, TIBC 319, ferritin 30, AST 23, ALT 27, alk phos 191, total protein 7.4, albumin 3.1. TSH 5.848; that was done on 07/01. White count 7.0, H and H 12.3 and 38.7, platelet count 266. UDS is negative. Urinalysis is negative, performed on 05/28. REASON FOR ADMISSION: Over a month ago, was as follows: Sent from [facility] for dementia and agitation, inability to manage the patient at [facility]. He had been admitted there for status epilepticus. He had noncompliance with medications for seizures. HOSPITAL COURSE: The patient was admitted to the Geriatric Psychiatry Unit. 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 There was extensive delay due to the patient being Yi speaking, resistant to the long-term care community to provide interpretation services. This was finally achieved with placement at the [facility], but unfortunately, there is no legal requirement that the nursing facilities take foreign language-speaking patients. During admission, we had a number of family meetings with daughter Jenni and daughter Jennifer. Nature of neurodegenerative disease was discussed. Risks of medications including the risk of stroke and were discussed. They were okay with continuing with olanzapine therapy. DISCHARGE PHYSICAL EXAMINATION: VITAL SIGNS: On the day of discharge are as follows, temperature 36.2, pulse 77, respirations 18, BP 109/51, O2 sat 100%. MUSCULOSKELETAL: Uses a walker, kyphotic. MENTAL STATUS EXAMINATION: This is a well-developed male, short stature. Attention fair to limited. Concentration fair to limited. Speech, normal rate. Thought process linear and limited. Thought content, focused on discharge. No psychomotor agitation. No psychomotor retardation. Denied SI or HI. Denied hopelessness, helplessness. Memory is noted to be impaired. Insight is limited. Judgment is impaired. Fund of knowledge below average. PROGNOSIS: For this patient is guarded to poor. Given his advanced dementia, need for memory care placement as well as his medical comorbidities. <ELECTRONICALLY SIGNED> By: Aguilar Ceja, 07/09/19 [id number] Aguilar Ceja, DO /nt
== END 2019-07-08 10:30 | DRG 57 ==
LOC: SBH
PROVIDERS: Hospitalist; Internal Medicine; ADMIT Psychiatry & Neurology Psychiatry
PROC: 3E0U33Z Introduction of Anti-inflammatory into Joints, Percutaneous Approach (ICD-10-PCS; principal; 2019-06-25)
DX: G30.9 Alzheimer's disease, unspecified (principal); F02.81 Dementia in other diseases classified elsewhere, unspecified severity, with behavioral disturbance; F01.51 Vascular dementia, unspecified severity, with behavioral disturbance; I48.19 Other persistent atrial fibrillation; K59.00 Constipation, unspecified; I10 Essential (primary) hypertension; E78.5 Hyperlipidemia, unspecified; E03.9 Hypothyroidism, unspecified; N40.0 Benign prostatic hyperplasia without lower urinary tract symptoms; G47.00 Insomnia, unspecified; E87.6 Hypokalemia; E83.42 Hypomagnesemia; M17.11 Unilateral primary osteoarthritis, right knee; E11.65 Type 2 diabetes mellitus with hyperglycemia; D64.9 Anemia, unspecified; R00.1 Bradycardia, unspecified; Z79.01 Long term (current) use of anticoagulants; R13.12 Dysphagia, oropharyngeal phase; Z23 Encounter for immunization; Z91.14 Patient's other noncompliance with medication regimen; G40.901 Epilepsy, unspecified, not intractable, with status epilepticus; Z87.81 Personal history of (healed) traumatic fracture
CPT/HCPCS: 10880